=== PATIENT | male | born 1970 | race Caucasian/White ===

== ENCOUNTER 2022-03-24 07:59 | Day surgery (SDC) | payer MEDICAID ==
[2022-03-17 16:13] LABS: BASOPHILS # (AUTO) 0.1 X10'3 (0-0.2); BASOPHILS % (AUTO) 1.3 % (0-1); EOSINOPHILS % (AUTO) 0.5 % (0-6); LYMPHOCYTES # (AUTO) 2.6 X10'3 (1.1-4.8); LYMPHOCYTES % (AUTO) 35.6 % (21-51); MEAN CORPUSCULAR HEMOGLOBIN 32.4 PG (27.0-31.0); MEAN CORPUSCULAR HGB CONC 35.1 g/dL (33.0-36.5); MEAN CORPUSCULAR VOLUME 92.4 FL (78-98); MEAN PLATELET VOLUME 7.7 FL (7.4-10.4); MONOCYTES # (AUTO) 0.6 X10'3 (0-0.9); MONOCYTES % (AUTO) 8.4 % (2-12); NEUTROPHILS # (AUTO) 3.9 X10'3 (1.8-7.7); NEUTROPHILS % (AUTO) 54.2 % (42-75); PRE OP HEMATOCRIT 43.7 % (42.0-52.0); PRE OP HEMOGLOBIN 15.3 g/dL (14.0-17.9); PRE OP PLATELET COUNT 275 X10'3 (140-440); RED BLOOD COUNT 4.73 X10'6 (4.70-6.10); RED CELL DISTRIBUTION WIDTH 13.5 % (11.5-14.5)
[2022-03-17 16:20] LABS: ALBUMIN/GLOBULIN RATIO 1.2 (1.1-1.5); ALKALINE PHOSPHATASE 89 IU/L (46-116); BLOOD UREA NITROGEN 14 MG/DL (7-18); BUN/CREATININE RATIO 12.7 (5.4-32.0); CALCIUM 9.2 MG/DL (8.5-10.1); CHLORIDE 105 MMOL/L (99-107); PRE OP ALT 49 U/L (30-65); PRE OP ANION GAP 10 (8-16); PRE OP AST 21 U/L (10-37); PRE OP BILIRUB, TOTAL 0.4 MG/DL (0.0-1.0); PRE OP GLUCOSE 85 MG/DL (70-104); PRE OP POTASSIUM 3.9 MMOL/L (3.4-5.1); PRE OP SODIUM 141 MMOL/L (135-145); TOTAL CARBON DIOXIDE 26.3 MMOL/L (24-32); TOTAL PROTEIN 7.4 G/DL (6.4-8.2); eGFR 70 ML/MIN
[~2022-03-24] VITALS: Ht 182.9 cm; Wt 108.7 kg
[2022-03-24] VITALS (24 sets, daily range): BP systolic 103–152; BP diastolic 51–101
[~2022-03-24 07:59] MED LIST: OMEP20TA23 PO; ceFAZolin inj. 2,000 MG in dextrose 5%-water 100 ML IV ONE; famotidine 20mg tablet PO ONE; ringers solution, lacted 1,000 ML IV SCH
[2022-03-24] MEDS ORDERED: midazolam 1 mg/ML 2ml injection IV PRN (09:15)
[2022-03-24] MEDS ORDERED: BUPIVAcaine/PF 2.5 mg/ml (0.25%) 30ml vial ONE ×2 (09:25→09:31)
[2022-03-24] MEDS ORDERED: LIDOcaine 1% 30ml preserv. free vial ONE ×2 (09:25→09:31)
[2022-03-24] MEDS ORDERED: dexamethasone sod phosphate 10mg/ml inj ONE (10:21)
[2022-03-24] MEDS ORDERED: desflurane 240ml liquid inh. IH ONE (10:21)
[2022-03-24] MEDS ORDERED: fentaNYL/PF 50MCG/1 ML 2ML syringe ONE (10:21)
[2022-03-24] MEDS ORDERED: dexmedetomidin/NS 400mcg/100mL BOTTLE IV ONE (10:21)
[2022-03-24] MEDS ORDERED: neostigmine methylsulfate 1 MG/ML 10ml vial ONE (10:21)
[2022-03-24] MEDS ORDERED: midazolam 1 mg/ML 2ml injection ONE (10:21)
[2022-03-24] MEDS ORDERED: ondansetron/PF 4mg/2ml inj ONE (10:24)
[2022-03-24] MEDS ORDERED: LIDOcaine 2% (20mg/ml) 5ml vial ONE (10:24)
[2022-03-24] MEDS ORDERED: propofol inj 20 ML IV ONE (10:24)
[2022-03-24] MEDS ORDERED: rocuronium 10mg/ml inj IV ONE ×2 (10:24→11:04)
[2022-03-24] MEDS ORDERED: glycopyrrolate 0.2mg/ml inj ONE (10:37)
[2022-03-24] MEDS ORDERED: morphine 2 MG/ML inj. syringe IV PRN (11:25)
[2022-03-24] MEDS ORDERED: ondansetron/PF 4mg/2ml inj IV PRN (11:25)
[2022-03-24] MEDS ORDERED: ringers solution, lacted 1,000 ML IV SCH (11:25)
[2022-03-24] MEDS ORDERED: fentaNYL/PF 50MCG/1 ML 2ML syringe IV PRN ×2 (11:25)
[2022-03-24] MEDS ORDERED: hydrALAZINE 20mg/ml inj. IV PRN (11:25)
[2022-03-24] MEDS ORDERED: labetalol 20mg/4ml (5mg/ml) syringe IV PRN (11:25)
--- NOTE | 2022-03-24 12:06 | NUR ---
Received from OR via [facility], accompanied by Anesthesiologist RUBI and report given by Anesthesiolgist. PT C/O ABDOMINAL PAIN AND DISCOMFORT AT A LEVEL 7; MEDS GIVEN. 3 LAP SITES ON ABDOMEN WITH BANDAID DRESSING COVERING; CDI. Addendum: 03/24/22 at 1235 by Charity Geiger RN Amended: Links added.
[2022-03-24] MEDS: morphine 4 MG/ML inj SYRINge IV PRN ×2 (12:13→12:29)
[2022-03-24] MEDS ORDERED: oxyCODONE/APAP 5-325mg tablet PO PRN (12:40)
[2022-03-24] MEDS ORDERED: acetaminophen 1,000mg/100ml IV 100 ML IV ONE (14:55)
[2022-03-24] MEDS ORDERED: ketorolac trometh. 30mg/ml inj. IV ONE (14:55)
[2022-03-24] MEDS ORDERED: oxyCODONE/APAP 5-325mg tablet PO ONE (15:25)
--- NOTE | 2022-03-24 16:06 | NUR ---
PT ABLE TO AMBULATE AND VOID LARGE AMOUNT OF URINE; PER PT. PAIN LEVEL IMPROVING AND TOLERATES ORAL INTAKE. DISCHARGE INSTRUCTIONS REVIEWED WITH PT AND PT VERBALIZED UNDERSTANDING. PT D/C TO HOME VIA WHEELCHAIR TO PRIVATE VEHICLE WITHOUT INCIDENT. Addendum: 03/24/22 at 1628 by Charity Geiger RN Amended: Links added.
== END 2022-03-24 16:06 | disposition home or self-care (01) ==
LOC: PAS 07:59
PROVIDERS: ATTEND Surgery
DX: K42.9 Umbilical hernia without obstruction or gangrene (principal); K40.20 Bilateral inguinal hernia, without obstruction or gangrene, not specified as recurrent; E78.2 Mixed hyperlipidemia; G47.30 Sleep apnea, unspecified; K21.9 Gastro-esophageal reflux disease without esophagitis; F41.8 Other specified anxiety disorders; G47.33 Obstructive sleep apnea (adult) (pediatric); Z79.899 Other long term (current) drug therapy; Z98.890 Other specified postprocedural states; Z88.6 Allergy status to analgesic agent; Z88.8 Allergy status to other drugs, medicaments and biological substances
CPT/HCPCS: 36415; 49585; 49650; 80053; 82948; 85025; 87811; 93005; C1781; J0131; J0690; J1100; J1885; J2250; J2270; J2405; J2704; J2710; J3010; J3490; J7030; J7060; J7120; Z7506; Z7508; Z7512; A4215; A4618